=== PATIENT | female | born 1935 | race Caucasian/White ===

== ENCOUNTER 2016-08-03 18:20 | Inpatient (IN) ==
[2016-08-03 20:31] LABS: Basophils % 0.1 % (0.0-0.8); Eosinophils % 0.2 % (0.00-10.9); Hematocrit 31.5 VOL% (35.7-47.0); Immature Granulocytes % 4.2 %; Immature Granulocytes Absolute 0.78 #; Lymphocytes # 1.3 10*3/uL (1.4-4.0); Lymphocytes % 6.8 % (21.3-54.2); Mean Corpuscular HGB Conc 31.7 GM/DL (32-36); Mean Corpuscular Hemoglobin 25 PG (27-34); Mean Corpuscular Volume 77.2 FL (87-102); Mean Platelet Volume 9.3 FL (9.6-12.0); Monocytes # 0.9 10*3/uL (0.11-0.8); Monocytes % 4.7 % (1.7-12.7); Neutrophils # 15.7 10*3/uL (1.4-7.4); Platelet Count 312 T/CUMM (130-400); Red Blood Count 4.08 MC/CUMM (3.8-5.5); White Blood Count 18.7 T/CUMM (4-12)
--- NOTE | 2016-08-03 20:33 | CT Report ---
CT head/brain wo con INDICATION: Headache , forehead laceration/hematoma, fall The total DLP is 1025 mGy*cm. COMPARISON: None available Technique: Serial axial tomographic images of the brain were obtained without the use of intravenous contrast. Dose reduction: This CT exam was performed using one or more of the following dose reduction techniques: Automated exposure control, automated adjustment of the mA and/or KV according to patient size, or use of iterative reconstruction technique. Findings: Moderate generalized atrophy is noted with mild prominence of the sulci and cortical volume loss. Periventricular white matter hypodensity changes are noted bilaterally which do not demonstrate mass effect and are nonspecific but favored to represent sequela of chronic microvascular ischemia. There is no evidence of vascular territory infarct or acute intracranial hemorrhage. The shepard-white matter differentiation is generally maintained. There is no hydrocephalus. The basilar cisterns are patent. Moderate atherosclerotic cavitation of the intracranial internal carotid arteries is noted. Layering fluid is noted within the left maxillary sinus. visualized paranasal sinuses, mastoid air cells and middle ear cavities are predominantly clear. The included orbits and their contents appear within normal limits. There is no acute skull fracture. There is a moderate-sized left forehead soft tissue hematoma with left preseptal soft tissue swelling also noted. IMPRESSION: No acute intracranial hemorrhage or infarction. Moderate amount of atrophy and skull of chronic microvascular ischemia. Left periorbital/preseptal and left forehead soft tissue hematoma. No definite acute skull fracture. However, there is associated layering density within the left maxillary sinus. A subtle acute left orbital or maxillary sinus fracture cannot be excluded. Correlate clinically and consider dedicated maxillofacial series CT for further evaluation if clinically indicated. PROCEDURE INTERPRETED AT [facility] DEPARTMENT OF RADIOLOGY Final Report Signed by: Darrell Waldrop
--- NOTE | 2016-08-03 20:34 | CT Report ---
CT cervical spine wo con Indication: Neck injury/pain Comparison: None. Technique: CT of the cervical spine was performed without administration of intravenous contrast. In addition to axial source images obtained from the skull base through the upper chest, coronal and sagittal MPR series were submitted for interpretation. The total DLP is 316.8 mGy*cm. Dose reduction: This CT exam was performed using one or more of the following dose reduction techniques: Automated exposure control, automated adjustment of the mA and/or KV according to patient size, or use of iterative reconstruction technique. Findings: Skull base is intact. The atlantooccipital and lateral axial articulations appear intact. Prevertebral soft tissues are within normal limits. No definite acute displaced fracture subluxation is identified. Multilevel degenerative changes are noted throughout the cervical spine including advanced facet arthropathy at C2-3 through C6-7 bilaterally and moderate disc space loss at C5-6 and C6-7. No suspicious osseous lesions are identified. There is a suggestion of high-grade spinal stenosis. Upper lungs are predominately clear. Right thyroid lobe is atrophic and/or has been previously resected. Correlate with surgical history. Impression: 1. No evidence of acute cervical spine pathology. 2. Multilevel moderatedegenerative changes as detailed above. 08/03/2016 8:29 PM PROCEDURE INTERPRETED AT [facility] DEPARTMENT OF RADIOLOGY Final Report Signed by: Darrell Waldrop
[2016-08-03 20:44] LABS: INR 1.1; PT Patient Result 11.7 SECS
[2016-08-03 20:49] LABS: Calcium 8.8 MG/DL (8.5-10.1); Osmolality,Calculated 286.7 MOS/KG (273-304); Potassium 3.6 MMOL/L (3.5-5.1)
[2016-08-03 20:58] LABS: Lymphocytes 4 % (20-55); Segmented Neutrophils 93 % (50-85); Total Cells Counted 100
[2016-08-03 20:59] LABS: Anisocytosis Slight; Ovalocytes Slight
[2016-08-03 21:00] LABS: Acanthocytes Few; Polychromasia Slight; Schistocytes Slight
[2016-08-03 21:19] LABS: Apearance,Urine CLEAR (Clear); Bilirubin,Urine Negative (Negative); Blood, Urine Negative (Negative); Glucose,Urine (UA) 50 mg/dL (Negative); Hyaline Casts,Urine 4 /LPF (0-3); Ketones,Urine Negative (Negative); Mucus,Urine Occasional /LPF (Occasional); Nitrite,Urine Negative (Negative); Protein,Urine Negative; Squamous Epithelial Cell,Urine Occasional /HPF (0-10); Urine Color Yellow (Yellow); Urine Specific Gravity 1.015 (1.001-1.035); Urine Urobilinogen < 2.0 EU/DL (0.2-1.0); WBC,Urine 1 /HPF (0-6)
--- NOTE | 2016-08-03 21:28 | XRay Report ---
XR knee 3V BI Clinical Information: Knee pain Comparison: None available Findings: There is no acute fracture. No evidence of knee dislocation. No joint effusion is evident bilaterally. There is a prominent osteochondral defect of the lateral femoral condyle of the right femur, which is only seen on the sunrise/patellar view. There is also suggestion of a small medial femoral condyle osteochondral defect on the left. Mild medial femorotibial compartment narrowing is noted bilaterally. Small tricompartmental osteophytes are noted. Mild osteopenia is noted. Mild vascular calcification is noted. Impression: No acute fracture or evidence of dislocation. Mild tricompartmental degenerative changes. Suggestion of focal femoral condylar osteochondral defects laterally on the right and medial on the left as detailed above. PROCEDURE INTERPRETED AT [facility] DEPARTMENT OF RADIOLOGY Final Report Signed by: Darrell Waldrop
--- NOTE | 2016-08-03 21:36 | XRay Report ---
XR humerus LT, XR shoulder 2V LT Clinical Information: fall, hematoma/pain Comparison: None available Findings: There is an acute metallic comment fracture of the proximal humerus. There is no evidence of shoulder dislocation at the glenohumeral joint. Acromioclavicular joint also appears intact. No suspicious osseous or soft tissue lesions are identified. Impression: Acute mildly comminuted fracture of the proximal humerus without evidence of shoulder dislocation. PROCEDURE INTERPRETED AT [facility] DEPARTMENT OF RADIOLOGY Final Report Signed by: Darrell Waldrop
[2016-08-03] MEDS ORDERED: DEXTROSE 50% 25 GM/50 ML VIAL IV PRN (22:19)
[2016-08-03] MEDS ORDERED: GLUCAGON 1 MG VIAL IM PRN (22:19)
[2016-08-03] MEDS ORDERED: ONDANSETRON 4 MG/2 ML VIAL IV PRN (22:19)
[2016-08-03] MEDS ORDERED: ACETAMINOPHEN 325 MG TABLET PO PRN (22:19)
--- NOTE | 2016-08-04 00:10 | Hospitalist History & Physical ---
Assessment and Plan (1) Fall Status: Acute Current Visit: No (2) Left humeral fracture Status: Acute Current Visit: Yes Qualifiers: Encounter type: initial encounter Humerus Location: proximal Fracture type: closed Fracture morphology: other fracture Fracture alignment: nondisplaced Qualified Code(s): S42.295A - Other nondisplaced fracture of upper end of left humerus, initial encounter for closed fracture (3) Hypertension, essential Status: Acute Current Visit: No (4) Acute worsening of stage 3 chronic kidney disease Status: Acute Current Visit: Yes (5) Type 2 diabetes mellitus Status: Acute Assessment and plan: Plan: CT brain unremarkable for acute neurologic process. Will obtain physical therapy eval Supportive care for pain following humerus fracture. Consult orthopedics Gentle hydration, recheck renal function panel Serial Accu-Cheks, monitor for hypoglycemia which if present, could be related to weakness and falls Check TSH No obvious acute infectious process Current Visit: Yes Qualifiers: Diabetes mellitus complication status: with unspecified complications Diabetes mellitus fdc insulin use: without fdc use Qualified Code( s): E11.8 - Type 2 diabetes mellitus with unspecified complications History of Present Illness Chief complaint: Status post fall, left humerus fracture History of present illness: Ms. Oro is a 80 year old female with hypertension, type 2 diabetes who reportedly has a recent history of multiple falls, and gait imbalance according to family. She sustained a fall earlier today resulting in a left humerus fracture. Or so was consulted and discussed with the ER physician, nonoperative fracture. She denies chest pain, palpitations or shortness of breath preceding her falls. She reports feeling unsteady on her feet at times. No report of syncope, bowel or bladder incontinence preceding or post fall. She is on oral medicine for diabetes, her blood sugar was 67 on initial chemistry. She does not recall frequent hypoglycemia. She has left arm pain related to the fall, currently a 5 out of 10, relieved with rest and pain medication. Exacerbated by movement. She is previously seen Dr. Grande in the hospital for unstable angina and underwent drug-eluting stent to the LAD and RCA in October. She reports compliance with her medications. Home Medications Medication Instructions Recorded Confirmed Type Aspirin [Ecotrin] 81 mg PO BEDTIME 10/04/15 02/19/16 History Carvedilol 3.125 mg PO DAILY 10/04/15 02/19/16 History Glimepiride 0.5 mg PO DAILY 10/04/15 02/19/16 History Omeprazole 20 mg PO DAILY 10/04/15 02/19/16 History Sertraline HCl 50 mg PO DAILY 10/04/15 02/19/16 History Triamterene/Hctz 37.5-25 Cap 1 capsule PO DAILY 10/04/15 02/19/16 History [Dyazide] Gabapentin Cap/Tab [Neurontin 100 mg PO QOTHER DAY 02/19/16 02/19/16 History Cap/Tab] Simvastatin 20 mg PO QAM 02/19/16 02/19/16 History HYDROcodone/ACETAMIN 7.5-325 1 tablet PO Q4H PRN #40 tablet 02/20/16 Rx [[place] 7.5-325] Allergies Allergy/AdvReac Type Severity Reaction Status Date / Time Amoxicillin [From Amoxil] Allergy RASH Verified 10/04/15 06:43 cephalexin [From Keflex] Allergy Verified 10/04/15 06:43 clarithromycin [From Biaxin] Allergy Verified 10/04/15 06:43 prednisone Allergy Verified 10/04/15 06:43 tetanus toxoid, adsorbed Allergy HIVES Verified 10/04/15 06:43 Medical,Surgical,& Family Hx - Medical History Cardio: History of: Hypertension, [place] (2015) Neurology: No history of: Seizures Endocrine: History of: Diabetes Mellitus (NIDDM), Dyslipidemia Rheumatology: History of;: Rheumatoid Arthritis Respiratory: History of: Respiratory Problems (Apnea) Renal: History of: Renal Problems (only one kidney) Genitourinary: History of: Recurring Urinary Tract Infections Gastrointestinal: History of: GERD, GI Problems (HERNIA) Musculoskeletal: History of: Back/Neck Problems (transverse T6-8 fracture) Other: History of: Cancer (breast cancer) - Surgical History Cardiac Surgeries: Sugical HX of: Cardiac Catheterization (STENTS), Cardiac Surgery (Stents placed) HEENT Surgeries: Surgical HX of: Thyroid Surgery (1979), Tonsilectomy & Adenoidectomy (11 years old) Abdominal Surgeries: Surgical HX of: Appendectomy, Colonoscopy (2013) Reproductive Surgeries: Surgical HX of;: Hysterectomy (1979) Orthopedic Surgeries: Surgical HX of;: Total Knee Replacement (2009) - Family History Family History: Reports;: Family Diabetes, Family Heart Disease - Social History Smoking Status: Never smoker Frequency of Alcohol Use: None Type of Drug Use: None Marital Status: Unknown Functional capacity: independent ambulation Review of systems: A 12 point review of systems is negative except as specified in the HPI Exam - Constitutional Vitals: Period Temp Pulse Resp BP Sys/Paez Pulse Ox Last 24 Hr 98 F-98.0 F 78-85 18-22 135-140/64-71 96-98 Exam: EXAM: CONSTITUTIONAL: non toxic, NAD HEENT: NC, left frontal hematoma and ecchymosis, OP benign, MONTY, EOMI CV: RRR no m/g/r RESP: clear B/L, no w/r/r GI: abd soft, NT, ND, +bowel sounds INTEGUMENTARY: no lesions or rash EXTREMITIES: no c/c/e, left arm in sling status post fracture of the left humerus NEURO: no focal deficits PSYCH: unremarkable, A/O x3 Results - Labs CBC & BMP: 08/03/16 19:44 08/03/16 19:44 Lab Results: I have reviewed the past 24 hour labs (EKG is pending, sinus rhythm on heart monitor) - Diagnostic Findings Procedure: CT: image reviewed by me, report reviewed by me, X-ray: image reviewed by me, report reviewed by me
[2016-08-04] MEDS: SODIUM CHLORIDE 0.9% 1,000 ML IV SCH ×2 (00:16→14:38)
[2016-08-04] MEDS ORDERED: GLUCAGON 1 MG VIAL IM PRN (01:24)
[2016-08-04] MEDS ORDERED: DEXTROSE 50% 25 GM/50 ML VIAL IV PRN (01:24)
[2016-08-04 04:40] LABS: Basophils % 0.1 % (0.0-0.8); Eosinophils # 0.1 10*3/uL (0.0-0.87); Eosinophils % 0.7 % (0.00-10.9); Hematocrit 27.1 VOL% (35.7-47.0); Hemoglobin 8.5 GM/DL (12.0-16.0); Immature Granulocytes % 2.7 %; Immature Granulocytes Absolute 0.47 #; Lymphocytes # 1.9 10*3/uL (1.4-4.0); Lymphocytes % 10.7 % (21.3-54.2); Mean Corpuscular HGB Conc 31.4 GM/DL (32-36); Mean Corpuscular Hemoglobin 24 PG (27-34); Mean Corpuscular Volume 77.9 FL (87-102); Mean Platelet Volume 9.5 FL (9.6-12.0); Monocytes # 1.1 10*3/uL (0.11-0.8); Neutrophils # 13.9 10*3/uL (1.4-7.4); Neutrophils % 79.8 % (38.7-73.9); Platelet Count 267 T/CUMM (130-400); Red Blood Count 3.48 MC/CUMM (3.8-5.5); Red Cell Distribution Width 16.8 % (9.3-17.3); White Blood Count 17.4 T/CUMM (4-12)
[2016-08-04 04:57] LABS: Calcium 8.6 MG/DL (8.5-10.1); Magnesium 1.8 MG/DL (1.8-2.4); Osmolality,Calculated 291.3 MOS/KG (273-304); Potassium 3.5 MMOL/L (3.5-5.1)
[2016-08-04] MEDS: INSULIN REGULAR 100 UNIT/ML SUBCUT SCH ×4 (08:10→21:39)
[2016-08-04] MEDS ORDERED: OMEPRAZOLE 20 MG CAPSULE PO SCH (09:00)
[2016-08-04] MEDS ORDERED: SIMVASTATIN 20 MG TABLET PO SCH (09:00)
--- NOTE | 2016-08-04 09:23 | Orthopedic Consult Note ---
History of Present Illness Chief complaint: Left shoulder pain History of present illness: Ms. Oro is a 80 year old female admitted to the hospital following a fall resulting in a left proximal humerus fracture and minor facial trauma. She said that she got dizzy and fell her left arm and flat on her face. She had a skin tear which was dressed in the ER. Her daughter is at bedside. Said that she has had multiple dizziness episodes recently and multiple falls. She denies any numbness or tingling. Denies any other complaints at this time. She recently underwent coronary stenting in October Home Medications Medication Instructions Recorded Confirmed Type Aspirin [Ecotrin] 81 mg PO BEDTIME 10/04/15 08/04/16 History Carvedilol 3.125 mg PO BID 10/04/15 08/04/16 History Glimepiride 0.5 mg PO DAILY 10/04/15 08/04/16 History Omeprazole 20 mg PO DAILY 10/04/15 08/04/16 History Triamterene/Hctz 37.5-25 Cap 1 capsule PO DAILY 10/04/15 08/04/16 History [Dyazide] Gabapentin Cap/Tab [Neurontin 100 mg PO TID 02/19/16 08/04/16 History Cap/Tab] Simvastatin 20 mg PO BEDTIME 02/19/16 08/04/16 History HYDROcodone/ACETAMIN 7.5-325 1 tablet PO Q4H PRN #40 tablet 02/20/16 08/04/16 Rx [[place] 7.5-325] Clopidogrel [Plavix] 75 mg PO DAILY 08/04/16 08/04/16 History Allergies Allergy/AdvReac Type Severity Reaction Status Date / Time Amoxicillin [From Amoxil] Allergy RASH Verified 10/04/15 06:43 cephalexin [From Keflex] Allergy Verified 10/04/15 06:43 clarithromycin [From Biaxin] Allergy Verified 10/04/15 06:43 prednisone Allergy Verified 10/04/15 06:43 tetanus toxoid, adsorbed Allergy HIVES Verified 10/04/15 06:43 12 point system: reviewed and no additional remarkable complaints except as stated Medical,Surgical,& Family Hx - Medical History Cardio: History of: Hypertension, [place] (2015) Neurology: No history of: Seizures Endocrine: History of: Diabetes Mellitus (NIDDM), Dyslipidemia Rheumatology: History of;: Rheumatoid Arthritis Respiratory: History of: Respiratory Problems (Apnea) Renal: History of: Renal Problems (only one kidney) Genitourinary: History of: Recurring Urinary Tract Infections Gastrointestinal: History of: GERD, GI Problems (HERNIA) Musculoskeletal: History of: Back/Neck Problems (transverse T6-8 fracture) Other: History of: Cancer (breast cancer) - Surgical History Cardiac Surgeries: Sugical HX of: Cardiac Catheterization (STENTS), Cardiac Surgery (Stents placed) HEENT Surgeries: Surgical HX of: Thyroid Surgery (1979), Tonsilectomy & Adenoidectomy (11 years old) Abdominal Surgeries: Surgical HX of: Appendectomy, Colonoscopy (2013) Reproductive Surgeries: Surgical HX of;: Breast Surgery (left mastectomy), Hysterectomy (1979) Orthopedic Surgeries: Surgical HX of;: Total Knee Replacement (2009) - Family History Family History: Reports;: Family Diabetes, Family Heart Disease - Social History Smoking Status: Never smoker Frequency of Alcohol Use: None Type of Drug Use: None Exam - Constitutional Vitals: Period Temp Pulse Resp BP Sys/Paez Pulse Ox Last 24 Hr 96.1 F-98.0 F 72-85 18-22 135-153/64-77 96-99 General appearance: no acute distress, over weight - Head Head exam: Present: abrasion, hematoma - Eye Eye exam: Present: EOMI Pupils: Present: MONTY - ENT ENT exam: Present: normal exam - Neck Neck exam: Present: normal inspection. Absent: tenderness - Respiratory Respiratory exam: Absent: accessory muscle use, wheezes - Cardiovascular Cardiovascular exam: Present: regular rate and rhythm - GI/Abdominal GI/Abdominal exam: Absent: distended, firm - Expanded Left Upper Extremity Shoulder exam: Present: swelling, pain, tenderness. Absent: normal inspection ( [id number] immobilizer in place. No gross deformity noted to the shoulder. Tender to palpation proximal humerus. Full active range of motion of fingers. Sensation stated as intact light touch all dermatomes distally. Cap refill brisk. ) - Expanded Left Lower Hip exam: Present: normal inspection Upper Leg exam: Present: normal inspection Knee exam: Present: normal inspection Lower leg exam: Present: normal inspection Ankle exam: Present: normal inspection, full ROM Foot/Toe exam: Present: normal inspection, full ROM Neuro vascular tendon exam: Absent: abnormal cap refill, motor deficit Right Lower Hip exam: Present: normal inspection Upper Leg exam: Present: normal inspection Knee exam: Present: normal inspection Lower leg exam: Present: normal inspection Ankle exam: Present: normal inspection, full ROM Foot/Toe exam: Present: normal inspection, full ROM Neuro vascular tendon exam: Absent: abnormal cap refill, motor deficit Gait: Present: not tested/not observed - Neurological Exam Neurological exam: Present: alert, oriented X3, CN II-XII intact - Psychiatric Psychiatric exam: Present: normal affect, normal mood - Skin Skin exam: Present: normal color, warm, dry Results - Labs CBC & BMP: 08/04/16 04:05 08/04/16 04:05 Lab Results: I have reviewed the past 24 hour labs - Diagnostic Findings Procedure: X-ray: image reviewed by me, report reviewed by me Assessment and Plan (1) Fall Status: Acute Assessment and plan: Discussed her dizziness and recent fall and the risk of further falls which cause an increased risk for other fractures. Recommend ambulation with assistance Current Visit: No (2) Left humeral fracture Status: Acute Assessment and plan: Discussed the left proximal humerus fracture in detail as well as nonoperative and operative treatment options. Discussed the risks and benefits of both surgery and conservative treatment Benefit of conservative management is to avoid surgery and the complications associated with surgery which include but are not limited to infection, bleeding , neurovascular injury, and the risk of anesthesia including but not limited to cardiac events, stroke, heart attack, . Risk of nonoperative treatment is limited use of the left shoulder, malunion, nonunion, stiffness, pain Discussed that with surgery the fracture can be better aligned to improve her function after the fracture heals, however her shoulder still may have pain and stiffness in that both with and without surgery her shoulder may not have as much motion as it did prior to her injury secondary to the nature of the fracture. My improving the alignment with surgery her motion should be better than with conservative treatment after the fracture heals and after she has a therapy to regain her motion I discussed the risks and benefits of the surgery, the daughter and patient decided at this time that they do not want to undergo surgical intervention. They will continue to discuss and consider it. We will continue to follow while in the hospital. She will need follow-up outpatient for repeat examination and repeat x-rays Current Visit: Yes Qualifiers: Encounter type: initial encounter Humerus Location: proximal Fracture type: closed Fracture morphology: other fracture Fracture alignment: nondisplaced Qualified Code(s): S42.295A - Other nondisplaced fracture of upper end of left humerus, initial encounter for closed fracture
[2016-08-04] MEDS: CARVEDILOL 3.125 MG TABLET PO SCH (10:02)
[2016-08-04] MEDS: GABAPENTIN 100 MG CAPSULE PO SCH (10:02)
[2016-08-04] MEDS: SERTRALINE 50 MG TABLET PO SCH (10:03)
[2016-08-04] MEDS: DOCUSATE SODIUM 100 MG CAPSULE PO SCH ×2 (10:03→21:39)
[2016-08-04] MEDS: PANTOPRAZOLE 40 MG TABLET PO SCH (10:03)
[2016-08-04] MEDS: SIMVASTATIN 20 MG TABLET PO SCH (21:38)
[2016-08-04] MEDS: ASPIRIN EC 81 MG TABLET PO SCH (21:39)
[2016-08-05] MEDS: SODIUM CHLORIDE 0.9% 1,000 ML IV SCH (02:13)
[2016-08-05] MEDS: SERTRALINE 50 MG TABLET PO SCH (09:34)
[2016-08-05] MEDS: DOCUSATE SODIUM 100 MG CAPSULE PO SCH ×2 (09:34→20:44)
[2016-08-05] MEDS: CARVEDILOL 3.125 MG TABLET PO SCH (09:34)
[2016-08-05] MEDS: PANTOPRAZOLE 40 MG TABLET PO SCH (09:34)
[2016-08-05] MEDS ORDERED: CLOPIDOGREL 75 MG TABLET PO SCH (10:00)
[2016-08-05] MEDS: INSULIN REGULAR 100 UNIT/ML SUBCUT SCH ×4 (10:08→20:58)
--- NOTE | 2016-08-05 10:38 | Hospitalist Progress Note ---
Assessment and Plan (1) Left humeral fracture Status: Acute Assessment and plan: I coordinated care with the human services case manager who is beginning to explore discharge options. Physical therapy evaluation will occur later today. I am in favor of some intermediary facility prior to the patient's home going. She has fallen and had several fractures in the last year I think she is at high risk for further fractures at this time. Current Visit: Yes Qualifiers: Encounter type: initial encounter Humerus Location: proximal Fracture type: closed Fracture morphology: other fracture Fracture alignment: nondisplaced Qualified Code(s): S42.295A - Other nondisplaced fracture of upper end of left humerus, initial encounter for closed fracture (2) Type 2 diabetes mellitus Status: Acute Current Visit: Yes Qualifiers: Diabetes mellitus complication status: with unspecified complications Diabetes mellitus ad terminal makeup operator insulin use: without custodial use Qualified Code( s): E11.8 - Type 2 diabetes mellitus with unspecified complications Hospitalist: Subjective Interval history: The patient is resting quietly in bed today. She was admitted to the hospital after a fall which caused her to have left humerus fracture and some minor trauma to the left orbit. The patient has no new symptoms today. The patient wishes to go home. The patient has an arm immobilizer in place. The patient's is amenable to discharge. The patient's daughters and extended family feel that they are not sufficient help to take care of her at home and wish her to go to [facility] [place]. Exam - Constitutional Vitals: Period Temp Pulse Resp BP Sys/Paez Pulse Ox Last 24 Hr 96.2 F-98.4 F 66-82 16-20 118-163/44-72 94-100 Exam: Constitutional System: Mild distress. No tremulousness. Head: Normocephalic, atraumatic. Ears, Nose and Throat System: No evidence of Otitis or Mastoiditis. No epistaxis or discharge Eyes System: Pupils equal, round, and reactive. Extraocular muscles intact. Neck: Supple, without adenopathy, No jugular venous distention. No thyromegaly , neck mass, or prior surgery apparent. Respiratory System: Chest clear to auscultation. Cardiovascular System: Heart with regular rate and rhythm. No murmur. GI System: Abdomen soft, nontender. Normo active bowel sounds present. Musculoskeletal System: limbs with left upper extremity in immobilizer due to humerus fracture Full distal pulses. Neurological System: No discernable sensory deficit. No aphasia Psychiatric System: Conversation is irrational Results - Labs CBC & BMP: 08/04/16 04:05 08/04/16 04:05 Lab Results: I have reviewed the past 24 hour labs
[2016-08-05] MEDS ORDERED: BENZOCAINE/MENTHOL LOZENGE 18/BOX PO PRN (14:26)
--- NOTE | 2016-08-05 19:23 | Orthopedic Progress Note ---
Orthopedics - Subjective Interval history: Mrs. Oro was seen today. She is complaining of left shoulder pain. She still wishes to be treated nonoperatively. Exam shows aging ecchymosis involving her left upper extremity. She has full hand range of motion. Motors are intact. Sensation is intact with the exception of her index finger where she is experiencing numbness to the radial and ulnar aspects after a hand laceration about a week and a half ago. She caught her finger on a door. Radiographs were reviewed of her shoulder which shows that she has a 3 part proximal humerus fracture in varus angulation. Impression: Left three-part proximal humerus fracture. Left index finger radial and ulnar digital neuropraxia versus possible laceration Plan: I discussed with the patient and her that is reasonable to treat her fracture nonoperatively. I have advised follow-up appointment in 7-10 days. She is to remove her sling 3 times daily for elbow through hand range of motion and hygiene purposes. Given the nature of her hand injury I suspect that this is just a neuropraxia although it is possible that she could have lacerated her digital nerves. I recommended observation for hand injury for now. Exam - Constitutional Vitals: Period Temp Pulse Resp BP Sys/Paez Pulse Ox Last 24 Hr 96.2 F-98.4 F 70-82 18-20 121-163/46-72 95-98 Results - Labs CBC & BMP: 08/04/16 04:05 08/04/16 04:05
[2016-08-05] MEDS: ASPIRIN EC 81 MG TABLET PO SCH (20:39)
[2016-08-05] MEDS: SIMVASTATIN 20 MG TABLET PO SCH (20:44)
[2016-08-06] MEDS: SODIUM CHLORIDE 0.9% 1,000 ML IV SCH (08:26)
[2016-08-06] MEDS ORDERED: CLOPIDOGREL 75 MG TABLET PO SCH (09:00)
[2016-08-06] MEDS: INSULIN REGULAR 100 UNIT/ML SUBCUT SCH ×2 (09:56→11:30)
[2016-08-06] MEDS: CARVEDILOL 3.125 MG TABLET PO SCH (09:57)
[2016-08-06] MEDS: GABAPENTIN 100 MG CAPSULE PO SCH (09:57)
[2016-08-06] MEDS: SERTRALINE 50 MG TABLET PO SCH (09:58)
[2016-08-06] MEDS: DOCUSATE SODIUM 100 MG CAPSULE PO SCH (09:58)
[2016-08-06] MEDS: PANTOPRAZOLE 40 MG TABLET PO SCH (09:58)
[2016-08-06 10:35] LABS: Basophils % 0.1 % (0.0-0.8); Eosinophils # 0.2 10*3/uL (0.0-0.87); Eosinophils % 1.4 % (0.00-10.9); Hematocrit 25.8 VOL% (35.7-47.0); Hemoglobin 7.8 GM/DL (12.0-16.0); Immature Granulocytes % 1.8 %; Immature Granulocytes Absolute 0.24 #; Lymphocytes # 1.4 10*3/uL (1.4-4.0); Lymphocytes % 10.8 % (21.3-54.2); Mean Corpuscular HGB Conc 30.2 GM/DL (32-36); Mean Corpuscular Hemoglobin 25 PG (27-34); Mean Corpuscular Volume 81.6 FL (87-102); Mean Platelet Volume 9.3 FL (9.6-12.0); Monocytes # 0.8 10*3/uL (0.11-0.8); Neutrophils # 10.5 10*3/uL (1.4-7.4); Neutrophils % 79.9 % (38.7-73.9); Platelet Count 240 T/CUMM (130-400); Red Blood Count 3.16 MC/CUMM (3.8-5.5); Red Cell Distribution Width 17.3 % (9.3-17.3); White Blood Count 13.1 T/CUMM (4-12)
[2016-08-06 11:38] VITALS: BP 129/60
--- NOTE | 2016-08-06 12:00 | Discharge Summary ---
Hospital Course - Hospital Course Hospital Course: Ms. Oro is a 80 year old female with hypertension, type 2 diabetes who reportedly has a recent history of multiple falls, and gait imbalance according to family. She sustained a fall on the day of admission resulting in a left humerus fracture. Ortho so was consulted and discussed with the ER physician, nonoperative fracture. She reports feeling unsteady on her feet at times. No report of syncope, bowel or bladder incontinence preceding or post fall. She is on oral medicine for diabetes, her blood sugar was 67 on initial chemistry. She does not recall frequent hypoglycemia. She has left arm pain related to the fall, currently a 5 out of 10, relieved with rest and pain medication. Exacerbated by movement. She is previously seen Dr. Grande in the hospital for unstable angina and underwent drug-eluting stent to the LAD and RCA in October. She reports compliance with her medications. She was admitted to the hospitalist service for humerus fracture and frequent falls. CT head without acute process. Patient reports a ten year history of unsteady gait, she has been admitted and worked up several times for this. Her history reports that she gets up and walks without the assistance of her walker or him, although he frequently tells her not to. It has been recommended several times by many different providers that she goes to a swing bed before going home. She has absolutely refused. She is completely oriented and able to make her own decisions. She has now reached maximal benefit of inpatient stay and will be discharged home with her . She will follow-up with ortho in 7-10 days and her pcp in one week for cbc check. - Time spent with patient Time with patient DS: Less than 30 minutes Diagnosis - Discharge Diagnosis (1) CAD (coronary artery disease) Status: Chronic (2) Hypertension, essential Status: Chronic (3) Fall Status: Chronic (4) Left humeral fracture Status: Chronic (5) Acute worsening of stage 3 chronic kidney disease Status: Chronic Specialty Discharge - Follow Up or Referrals Follow up with: Abdiel Alvarez Jr., MD [Physician] - 08/13/16 9:00 am (7-10 days ) Discharge Plan - Discharge Data Disposition: Disch To Home/Self Care Condition at Discharge: Stable Discharge Diet: heart healthy Activity: as per physical therapy Hygiene: no restrictions Weight Bearing at Discharge: partial weight bearing Contact your physician if you experience:: Bleeding, pain uncontrolled by pain medications - Discharge Medications Continue Omeprazole 20 mg PO DAILY Glimepiride 0.5 mg PO DAILY Triamterene/Hctz 37.5-25 Cap [Dyazide] 1 capsule PO DAILY Carvedilol 3.125 mg PO BID Aspirin [Ecotrin] 81 mg PO BEDTIME Sertraline [Zoloft] 100 mg PO BEDTIME HYDROcodone/ACETAMIN 7.5-325 [[place] 7.5-325] 1 tablet PO Q4H PRN #40 tablet PRN Reason: Pain Moderate (4-7) Simvastatin 20 mg PO BEDTIME Gabapentin Cap/Tab [Neurontin Cap/Tab] 100 mg PO TID Clopidogrel [Plavix] 75 mg PO DAILY - Follow Up or Referral Follow Up: Abdiel Alvarez Jr., MD [Physician] - 08/13/16 9:00 am (7-10 days ) - Forms/Instructions Instructions: Arm Fracture in Adults (DC) Exam - Constitutional Vitals: Period Temp Pulse Resp BP Sys/Paez Pulse Ox Last 24 Hr 97.6 F-98.4 F 70-77 18-19 103-142/55-83 95-100 General appearance: over weight - Head Head exam: Present: normocephalic, atraumatic - Eye Eye exam: Present: EOMI Pupils: Present: MONTY - ENT ENT exam: Present: normal exam - Neck Neck exam: Present: normal inspection - Respiratory Respiratory exam: Present: clear to auscultation bilaterally. Absent: wheezes - Cardiovascular Cardiovascular exam: Present: regular rate and rhythm - GI/Abdominal GI/Abdominal exam: Present: normal bowel sounds, soft. Absent: tenderness, rebound - Extremities Exam Extremities exam: Present: normal inspection - Back Exam Back exam: Present: normal inspection - Neurological Exam Neurological exam: Present: alert, oriented X3 - Psychiatric Psychiatric exam: Present: normal affect, normal mood - Skin Skin exam: Present: warm, intact Discharge Results Labs on day of discharge: Labs from last 24 hours 08/06/16 08/06/16 08/06/16 11:00 10:25 09:55 WBC 13.1 H RBC 3.16 L Hgb 7.8 L Hct 25.8 L MCV 81.6 L MCH 25 L MCHC 30.2 L RDW 17.3 Plt Count 240 MPV 9.3 L Neut % (Auto) 79.9 H Lymph % (Auto) 10.8 L [place] % (Auto) 6.0 Eos % (Auto) 1.4 Baso % (Auto) 0.1 Neut # (Auto) 10.5 H Lymph # (Auto) 1.4 [place] # (Auto) 0.8 Eos # (Auto) 0.2 Baso # (Auto) 0.0 Immature Gran % 1.8 Nucleated RBC % 0.0 Immature Gran # 0.24 Nucleated RBCs # 0.00 POC Glucose 145 H 182 H 08/05/16 08/05/16 17:28 11:59 WBC RBC Hgb Hct MCV MCH MCHC RDW Plt Count MPV Neut % (Auto) Lymph % (Auto) [place] % (Auto) Eos % (Auto) Baso % (Auto) Neut # (Auto) Lymph # (Auto) [place] # (Auto) Eos # (Auto) Baso # (Auto) Immature Gran % Nucleated RBC % Immature Gran # Nucleated RBCs # POC Glucose 192 H 110 H DS: Provider Date of admission: 08/05/16 13:43 Primary care physician: . No PCP Attending physician on admission: Miguel Ángel Swanson DO Consults: 08/03/16 22:19 Consult to Case Mgmt/Social Srvs [CONS] Routine Reason for Case Mgmt/Social Srvs: Discharge Planning 08/04/16 01:21 Consult to Dietitian [CONS] Routine Reason for Dietitian: Dietary Consult Consult to Physician [CONS] Routine Comment: L humerus fracture Consulting Provider: Abdiel Alvarez Jr. Consult to Specialist Group: Orthopedic When should Consulting Provider be notified: In am Person Notified: MARY FIGUEROA Date Notified: 08/05/16 Time Notified: 09:00 08/04/16 04:28 Consult to Occupational Therapy [CONS] Routine Reason for Occupational Therapy: Evaluate and Treat Consult Comment: A,AA,PROM elbow through hand Consult to Physical Therapy [CONS] Routine Reason for Physical Therapy: Evaluate and Treat 08/04/16 12:34 Consult to Case Mgmt/Social Srvs [CONS] Routine Reason for Case Mgmt/Social Srvs: Swingbed/SNF/Long Term Consult Comment: sb placment in [place] Discharging clinician: Lisa Cao MD
== END 2016-08-06 14:39 | disposition home health service (06) | DRG 563 ==
LOC: EDBD → EDUNIT# → N.EDINP 18:20 → N.ED 18:20 → SUATTDRO 22:34 → N.EDINP 23:25 → N.TELES 23:28 → N.3E 08-05 14:13
PROVIDERS: ADMIT Internal Medicine; ATTEND Internal Medicine